=== PATIENT | male | born 1985 | race Caucasian/White ===

== ENCOUNTER → 2016-07-03 | Outpatient (REF) | payer OTHER | LOC: M LAB REF 16:09 | PROVIDERS: ATTEND Physician Assistant | DX: J06.9 Acute upper respiratory infection, unspecified (principal) ==

== ENCOUNTER 2016-08-08 11:17 | Emergency (ER) | payer OTHER, BC ==
[~2016-08-08] VITALS: Ht 177.8 cm; Wt 117.9 kg
[2016-08-08] MEDS ORDERED: IBUP600T26 PO (12:41)
[2016-08-08] MEDS ORDERED: IBUPROFEN 600 MG TAB PO ONE (12:45)
[2016-08-08 13:18] VITALS: BP 146/90
== END 2016-08-08 13:18 | disposition home or self-care (01) ==
LOC: M ED 12:28
DX: S63.502A Unspecified sprain of left wrist, initial encounter (principal); X50.0XXA Overexertion from strenuous movement or load, initial encounter; Y92.89 Other specified places as the place of occurrence of the external cause; Y93.89 Activity, other specified; Y99.0 Civilian activity done for income or pay

== ENCOUNTER 2016-09-01 11:59 | Emergency (ER) | payer BC, OTHER ==
[~2016-09-01] VITALS: Ht 177.8 cm; Wt 115.7 kg
[~2016-09-01 11:59] MED LIST: IBUP600T26 PO
[2016-09-01] MEDS ORDERED: IBUPROFEN 800 MG TAB PO ONE (12:45)
--- NOTE | 2016-09-01 13:01 | REP ---
Clinical: Trauma . Technique: Internal rotation, external rotation, and Y view right shoulder. Findings: No acute fracture or dislocation. The acromioclavicular and glenohumeral joints are intact. No periarticular calcifications or degenerative changes are appreciated. Sub acromial space is normal. Surrounding soft tissues are unremarkable. Impression: Normal right shoulder radiographs. Signed by Emory aGlvan MD 09/01/2016 12:53 P
[2016-09-01 13:19] VITALS: BP 136/74
== END 2016-09-01 13:23 | disposition home or self-care (01) ==
LOC: M ED 12:56
DX: S43.401A Unspecified sprain of right shoulder joint, initial encounter (principal); X50.0XXA Overexertion from strenuous movement or load, initial encounter; Y92.129 Unspecified place in nursing home as the place of occurrence of the external cause; Y93.E9 Activity, other interior property and clothing maintenance; Y99.0 Civilian activity done for income or pay; F17.210 Nicotine dependence, cigarettes, uncomplicated

== ENCOUNTER → 2016-10-24 | Outpatient (REF) | payer BC | LOC: M SFHCPLAZ 15:25 | PROVIDERS: ATTEND Family Medicine | DX: E66.9 Obesity, unspecified (principal) ==

== ENCOUNTER 2018-11-04 08:09 | Emergency (ER) | payer BC ==
[~2018-11-04] VITALS: Ht 177.8 cm; Wt 107.2 kg
[2018-11-04 08:09] VITALS: BP 139/75
[~2018-11-04 08:09] MED LIST changes: +IBUP-1022 PO; -IBUP600T26 PO
[2018-11-04] MEDS ORDERED: AMOX875T PO (08:41)
[2018-11-04] MEDS ORDERED: IBUP80TA PO (09:20)
[2018-11-04] MEDS ORDERED: IBUPROFEN 800 MG TAB PO ONE (09:30)
== END 2018-11-04 09:28 | disposition home or self-care (01) ==
LOC: M ED 08:09
DX: J01.90 Acute sinusitis, unspecified (principal)

== ENCOUNTER 2019-02-24 09:58 | Emergency (ER) | payer OTHER, BC ==
[~2019-02-24] VITALS: Ht 177.8 cm; Wt 108.2 kg
[~2019-02-24 09:58] MED LIST changes: +AMOX875T PO; +IBUP80TA PO
--- NOTE | 2019-02-24 10:55 | REP ---
Left great toe series: Four views. History: [place] a pop in the left great toe. Findings: Four views of the left great toe demonstrate normal bones, joints, and soft tissues. No fracture or subluxation is seen. Impression: Negative radiographs of the left great toe. Electronically Signed by Michael Ca MD 02/24/2019 05:16 P
--- NOTE | 2019-02-24 12:54 | REP ---
Left foot four views : There is no fracture or dislocation. Mineralization and joint spaces are normal. There are no calcifications or foreign bodies. Impression: Negative left foot . Electronically Signed by All Saxena MD 02/24/2019 12:46 P
[2019-02-24 13:29] VITALS: BP 162/98
== END 2019-02-24 13:30 | disposition home or self-care (01) ==
LOC: M ED 09:58
DX: M79.672 Pain in left foot (principal); M79.675 Pain in left toe(s); F17.210 Nicotine dependence, cigarettes, uncomplicated; F17.220 Nicotine dependence, chewing tobacco, uncomplicated

== ENCOUNTER → 2019-07-29 | Outpatient (REF) | payer BC ==
[2019-07-29 15:29] LABS: INFLUENZA A AMPLIFICATION NEGATIVE (NEGATIVE); INFLUENZA B AMPLIFICATION NEGATIVE (NEGATIVE)
== END ==
LOC: M LAB REF 14:46
PROVIDERS: ATTEND Physician Assistant Medical
DX: J11.1 Influenza due to unidentified influenza virus with other respiratory manifestations (principal)

== ENCOUNTER 2020-02-27 13:21 | Emergency (ER) | payer OTHER, BC ==
[~2020-02-27] VITALS: Ht 177.8 cm; Wt 107.9 kg
[2020-02-27 13:22] VITALS: BP 139/96
[2020-02-27] MEDS ORDERED: IBUPROFEN 800 MG TAB PO ONE (14:15)
[2020-02-27] MEDS ORDERED: NEOSPORIN OINT 0.9 GM PKT TOP ONE (14:15)
== END 2020-02-27 14:30 | disposition home or self-care (01) ==
LOC: M ED 13:21
DX: T23.101A Burn of first degree of right hand, unspecified site, initial encounter (principal); X12.XXXA Contact with other hot fluids, initial encounter; Y92.89 Other specified places as the place of occurrence of the external cause; Y99.0 Civilian activity done for income or pay; F17.210 Nicotine dependence, cigarettes, uncomplicated

== ENCOUNTER 2020-04-20 08:00 | Emergency (ER) | payer BC, OTHER ==
[~2020-04-20] VITALS: Ht 177.8 cm; Wt 109.1 kg
[2020-04-20] MEDS ORDERED: KETOROLAC 30 MG/ML 1ML VIAL IM ONE (08:30)
[2020-04-20] MEDS ORDERED: LIDOCAINE 5% (LIDODERM) PATCH TD ONE (08:30)
[2020-04-20] MEDS ORDERED: ACETAMINOPHEN 500 MG TAB PO ONE (08:30)
--- NOTE | 2020-04-20 09:08 | REP ---
INDICATION: midline low back pain COMPARISON: None. TECHNIQUE: AP, lateral, bilateral oblique, and coned-down views of the lumbar spine. FINDINGS: Alignment and lordosis maintained. Vertebral bodies are intact. Disc spaces are relatively normal/age-appropriate. No acute fracture/compression injury or subluxation. No obvious spondylolysis or spondylolisthesis.. IMPRESSION: Normal age-appropriate lumbosacral Spine series. If the patient remains symptomatic consider MRI for further investigation. <Electronically signed by Emory Galvan > 04/20/20 0999
[2020-04-20] MEDS ORDERED: LIDO5DIS41 TOP (11:00)
[2020-04-20] MEDS ORDERED: CYCL5TAB PO (11:00)
[2020-04-20 11:04] VITALS: BP 137/87
[2020-04-20] MEDS ORDERED: **NOTE PATIENT COMMENT** MISC XX SCH (21:00)
== END 2020-04-20 11:05 | disposition home or self-care (01) ==
LOC: M ED 08:00
DX: S39.012A Strain of muscle, fascia and tendon of lower back, initial encounter (principal); X50.3XXA Overexertion from repetitive movements, initial encounter; Y92.009 Unspecified place in unspecified non-institutional (private) residence as the place of occurrence of the external cause; Y93.E5 Activity, floor mopping and cleaning; Y99.8 Other external cause status; F17.200 Nicotine dependence, unspecified, uncomplicated; Z82.49 Family history of ischemic heart disease and other diseases of the circulatory system
CPT/HCPCS: 72110; 96372; 99283; J1885

== ENCOUNTER → 2021-06-16 | Outpatient (REF) ==
[~2021-06-16] MED LIST changes: +CYCL5TAB PO; +LIDO5DIS41 TOP
== END ==
LOC: M LABSMTC 12:19
PROVIDERS: ATTEND Pediatrics
DX: Z11.52 Encounter for screening for COVID-19 (principal); Z20.822 Contact with and (suspected) exposure to COVID-19

== ENCOUNTER → 2022-11-20 | Outpatient (REF) | LOC: EDSTATUS 11:00 → M CARPUL 15:02 | PROVIDERS: ATTEND Nurse Practitioner Adult Health | DX: Z02.1 Encounter for pre-employment examination (principal) ==

== ENCOUNTER → 2024-07-23 | Outpatient (REF) ==
[~2024-07-23] MED LIST changes: -CYCL5TAB PO; +CYCL5TAB4 PO
== END ==
LOC: M CARPUL 14:48
PROVIDERS: ATTEND Family Medicine
DX: Z00.00 Encounter for general adult medical examination without abnormal findings (principal)

== ENCOUNTER → 2024-07-30 | Outpatient (REF) | LOC: M EMP 14:48 | PROVIDERS: ATTEND Family Medicine | DX: Z11.52 Encounter for screening for COVID-19 (principal) ==

== ENCOUNTER → 2024-08-06 | Outpatient (REF) | LOC: M RAD 15:01 | PROVIDERS: ATTEND Family Medicine | DX: Z02.89 Encounter for other administrative examinations (principal) ==